=== PATIENT | male | born 1995 | race Caucasian/White ===

== ENCOUNTER 2022-07-15 17:18 | Emergency (ER) | payer MEDICAID, SELFPAY ==
[2022-07-15 17:36] VITALS: BP 129/66; PULSE 96; RESP 20; TEMP 36.7; O2SAT 98
--- NOTE | 2022-07-15 18:00 | DI.CT_ITS ---
Exam(s) CT LUMBAR SPINE WO EXAM: CT LUMBAR SPINE WO CLINICAL HISTORY: midline lumber spine tenderness, r/o fracture. TECHNIQUE: Imaging Protocol: Axial computed tomography images with coronal and sagittal reformatted images were created and reviewed. COMPARISON: No exams were available for comparison FINDINGS: Bones: No fractures or dislocations are seen. The alignment of the spine is normal including the thor acolumbar junction. There are mild degenerative changes in the lumbar spine. Soft tissues: The soft tissues of the visualized abdomen and chest are unremarkable. There are mild d iffuse disc bulges at L2-3 and L3-L4 causing mild central spinal canal stenosis. IMPRESSION: No acute fracture or subluxation in the lumbar spine. RADIATION DOSE DELIVERED: 581.69mGy.cm Total DLP 581.69mGy.cm Total DLP DATA REPOSITORY: All CT scans at this facility are submitted to the National Radiology Data Registry (NRDR) Dose Index Registry (DIR) with the [employer] (ACR). RADIATION OPTIMIZATION: All CT scans at this facility use at least one of these dose optimization te chniques: automated exposure control; mA and/or kV adjustment per patient size (includes targeted exa ms where dose is matched to clinical indication); or iterative reconstruction.
--- NOTE | 2022-07-15 18:08 | ED.GENADUL_ITS ---
Discharge Plan Disposition Patient Disposition: HOME Condition: Improving Discharge Details Clinical Impression: Lumbar contusion Primary Care Provider: Zuly Srivastava ED Provider: Bhargavi Collins Home Meds and New Rx's Prescriptions: New methocarbamol 500 mg tablet 500 mg PO Q6H PRN (Reason: muscle spasm) Qty: 14 0RF Continued clonazepam 0.5 mg tablet 0.5 mg PO BID Qty: 60 0RF Rx Instructions: Trial for KECIA Discharge Instructions Instructions: Contusion in Adults (ED) Additional Instructions: Your imaging today shows degenerative changes but no evidence of acute fracture. Drink plenty of fluids and get plenty of rest. Alternate tylenol and motrin as needed and directed for pain. Take the oxycodone for pain not relieved with Tylenol or Motrin. A prescription for the muscle relaxer methocarbamol has been sent electronically to your pharmacy. Return immediately to the emergency department if you develop any worsening or new concerning symptoms such as bowel or bladder incontinence, leg weakness or numbness, inability to ambulate, worsening pain or any other concerns. Discharge Data Discharge Date/Time-TO BE ENTERED AT DEPARTURE: 07/15/22 20:15 Discharge Physician: Bhargavi Collins Medical Decision Making 27-year-old male presents with lower back pain s/p mechanical fall down 8 feet off a shed directly onto his back on the hard grass below 2 hours prior to arri ganga. Denies head injury and has been able to ambulate. Patient ambulated into the emergency department. Vitals within normal limits. Lungs are clear bilaterally. Abdomen soft and nontender. He has midline lumbar spine and bilateral lumbar paraspinal tenderness. There is no evidence of trauma to back. Normal inspection and range of motion to extremities without evidence of deformity or pain. Will refer for CT imaging due to mechanism of fall to rule out fracture. We will give a dose of oxycodone and Toradol IM and reassess. Imaging reviewed and notes degenerative changes but no acute fracture. Patient is moving all extremities without focal deficits. His pain is improved with oxy codone and Toradol. Will give oxycodone bottle to go as he still appears uncomfortable. Discussed with patient that he should rest as much as possible, apply ice to the affected areas, alternate Tylenol and Motrin. Advised to follow-up with the primary care doctor for reevaluation and for referral for outpatient MRI if indicated. Advised to return here immediately if he develops sudden loss of bowel or bladder function, inability ambulate, worsening pain or any other concerns. Imaging Data Radiologic Study: Radiologist's impression: CT Lumbar Spine Without Contrast Exam date and time: 07/15/2022 6:23 PM Age: 27 years old Clinical indication: Low back pain TECHNIQUE: Imaging protocol: Computed tomography of the lumbar spine without contrast. COMPARISON: No relevant prior studies available. FINDINGS: Bones/joints: No acute fracture. There is a broad-based disc bulge noted at the L2-L3, L3-L4 and L4-L5 levels causing mild spinal canal stenosis at L2-L3 and L3-L4 and mild right neural foraminal narrowing at L4-L5. Incidentally noted is sacralization of the L5 vertebral body with fusion of the L5 transverse processes with the bilateral sacral ala. Soft tissues: Unremarkable. IMPRESSION: No acute fracture. Multilevel degenerative changes as described. HPI General Mode of arrival: ambulatory . Date/Time Provider Initiated Documentation: 07/15/22 17:53 . Limitations to Documentation: no limitations . Information obtained by: patient . HPI Narrative: Patient is a 27-year-old male presents with midline lower back pain after fall 8 feet off a shed onto grass 2 hours ago. Patient states he slipped off the shed falling directly onto his back onto the grass. He denies head injury, headache, LOC, chest pain, shortness of breath, abdominal pain, neck pain, extremity injury or pain. He has not taken any medication for pain. He states he was able to ambulate after the fall but is having pain in his lower back with any movement. Related Data Home Medications Medication Instructions Recorded Confirmed clonazepam 0.5 mg tablet 0.5 mg PO BID #60 tabs 07/09/22 07/15/22 methocarbamol 500 mg tablet 500 mg PO Q6H PRN muscle spasm #14 07/15/22 tabs Previous Rx's Medication Instructions Recorded clonazepam 0.5 mg tablet 0.5 mg PO BID #60 tabs 07/09/22 methocarbamol 500 mg tablet 500 mg PO Q6H PRN muscle spasm #14 07/15/22 tabs Allergies Allergy/AdvReac Type Severity Reaction Status Date / Time fluoxetine [From Prozac] Allergy Intermediate rash Unverified 07/15/22 17:40 General Stated Complaint: Trauma BRITT: 3 Review of Systems All systems reviewed & are unremarkable except as noted in HPI and below Constitutional Constitutional: Reports as per HPI, Denies chills, Denies excessive sweating, Denies fatigue and Denies fever(s) Eyes Eyes: Denies blurry vision ENT Ears, Nose, Mouth, and Throat: Denies dizziness, Denies sore throat and Denies throat swelling Cardiovascular Cardiovascular: Denies chest pain and Denies dyspnea Respiratory Respiratory: Denies cough and Denies dyspnea Gastrointestinal Gastrointestinal: Denies abdominal pain, Denies diarrhea and Denies vomiting Genitourinary Genitourinary: Denies hematuria and Denies dysuria Musculoskeletal Musculoskeletal: Reports back pain and Denies numbness Integumentary/Breasts Skin/Breast: Denies lesions and Denies rash Neurologic Neurologic: Denies behavioral changes, Denies confusion, Denies dizziness, Denies localized weakness and Denies numbness Psychiatric Psychiatric: Denies behavioral changes, Denies confusion and Denies depression Endocrine Endocrine: Denies excessive sweating and Denies fatigue Hematologic/Lymphatic Hematologic/Lymphatic: Denies easy bruising and Denies lymphadenopathy Allergic/Immunologic Allergic/Immunologic: Denies throat swelling PFSH All Active Problems Lumbar contusion (Acute) KECIA (generalized anxiety disorder) (Acute) Acute on chronic, with onset @ 19-20's .. remembering as sudden (gregarious w/o memory of anxiety while in HS) .. Hx working, partying with tough crowd, and substance abuse (no injectables).. Screening for cholesterol level (Acute) Parenting stress (Acute) , 7-mo dtr.. [place]. Caregiver burden (Acute) Moved here to help with extended family; [id number]-eg-rea recovered, but decided to stay. Medical History (Updated 07/15/22 @ 19:59 by Bhargavi Collins DO) Anxiety and depression Surgical History (Updated 07/15/22 @ 18:04 by Bhargavi Collins DO) History of hand surgery Right 5th finger surgery Family History (Updated 07/02/22 @ 17:31 by Monique Clayton RN) Paternal Grandfather Alcohol use disorder Sister Asthma Depression Anxiety Mother Breast cancer Depression Anxiety Paternal Grandmother Diabetes Hypertension Anxiety Father Anxiety Social History (Updated 06/17/22 @ 14:38 by Bernice Boyer LPN) Smoking/Tobacco Use Status: Current every day Tobacco Type: e-cigarettes Tobacco: How many years used: 10 Smokeless tobacco user: other (Vape) Smoking risk assessment performed?: Yes Alcohol Intake: current Alcohol Intake frequency: a few times a month Drug use: Occasionally Substance use type: marijuana Adopted: No Caregiver/Support person: No Foster care: No Household members: spouse and children Housing: apartment Number of Children: 1 Communication Needs: None Education Level: high school Do you need help understanding health information?: Never current occupation: [employer] Pets and animals: Yes Pets and animals: dog(s) Sexually active: Yes Do you think of yourself as: straight/heterosexual Current gender identity: male What is your relationship status?: How often do you talk on the phone with friends or family?: once per week How often do you get together with friends or relatives?: once per week Do you belong to any clubs or organized social groups?: no Panel score (0-1 are the most socially isolated patients): 1 Seatbelt use: always Helmet use: No Drive intox or ride w/intox coach driver: No Do you feel safe at home: Yes Do you feel safe in your relationship?: Yes Exam Const General: cooperative and healthy appearing Orientation: alert, awake and oriented x3 HENMT Head: normal to inspection Ears: hearing grossly normal bilaterally and external ears normal General nose exam: external nose normal Face and sinus: normal facial exam Mouth: oral mucosae normal Eyes General: appearance normal, both eyes and all related structures Eyelids: eyelids normal EOM: EOM intact bilaterally Neck Neck: normal visual inspection, full ROM, no meningeal signs, trachea midline, supple, no anterior neck swelling and No submandibular swelling Lymphatic: no lymphadenopathy noted Chest Chest: normal inspection of the chest, normal palpation of entire chest wall and no tenderness Resp Effort & Inspection: normal respiratory effort and able to speak in complete sentences Auscultation: clear to auscultation bilaterally Cardio Rate: regular rate Rhythm: regular rhythm GI Inspection: normal to inspection and no abdominal wall ecchymosis Palpation: soft, not firm, no guarding, no hepatosplenomegaly, no masses and nontender Auscultation: hypoactive bowel sounds Back/Spine/Pelvis Cervical Spine: No cervical spinal tenderness Thoracic/Lumbar Spine: No thoracic spinal tenderness and lumbar spinal tenderness Pelvis: no pain with anterior-posterior compression Back/spine/pelvis image: 1. Tenderness to palpation midline lumbar spine and extending to bilateral lumbar paraspinal region. There is no evidence of edema, erythema, ecchymosis, rash, lesions or step-off. Skin General skin exam: no rashes or lesions noted Neuro General: patient alert, patient awake, patient oriented x3 and moves all extremities Cognition: normal cognition Speech: speech normal Motor: muscle tone normal throughout and strength 5/5 throughout Sensory Exam: no sensory deficits noted Extrem General: normal to inspection, full ROM and capillary refill normal Other: Full ROM b/l upper and lower extremities without pain or evidence of trauma. B/L PT/DP pulses intact. Psych Appearance: grossly normal Mental Status: mental status grossly normal Speech and Movement: speech and movement normal Affect: normal affect Thought Process: normal Course Vital Signs Vital signs: Vital Signs Temperature 98.1 F 07/15/22 17:36 Pulse 96 H 07/15/22 17:36 Respiratory Rate 20 07/15/22 17:36 Blood Pressure 129/66 07/15/22 17:36 Pulse Oximetry 98 07/15/22 17:36 Temperature 98.1 F 07/15/22 17:36 Pulse 96 H 07/15/22 17:36 Respiratory Rate 20 07/15/22 17:36 Respiratory Effort 07/15/22 17:38 Blood Pressure 129/66 07/15/22 17:36 Blood Pressure Position Sitting 07/15/22 17:36 Pulse Oximetry 98 07/15/22 17:36 Oxygen Delivery Method Room Air 07/15/22 17:36 Oxygen Flow Rate 0 07/15/22 17:36 Pain Level 9 07/15/22 17:36
[2022-07-15] MEDS: Ketorolac 60 MG/2 ML VIAL IM (18:37)
[2022-07-15] MEDS: oxyCODONE 5 MG TAB PO (18:37)
--- NOTE | 2022-07-15 19:24 | DI.VRAD_ITS ---
PROCEDURE INFORMATION: Exam: CT Lumbar Spine Without Contrast Exam date and time: 07/15/2022 6:23 PM Age: 27 years old Clinical indication: Low back pain TECHNIQUE: Imaging protocol: Computed tomography of the lumbar spine without contrast. COMPARISON: No relevant prior studies available. FINDINGS: Bones/joints: No acute fracture. There is a broad-based disc bulge noted at the L2-L3, L3-L4 and L4-L5 levels causing mild spinal canal stenosis at L2-L3 and L3-L4 and mild right neural foraminal narrowing at L4-L5. Incidentally noted is sacralization of the L5 vertebral body with fusion of the L5 transverse processes with the bilateral sacral ala. Soft tissues: Unremarkable. IMPRESSION: No acute fracture. Multilevel degenerative changes as described. Dictated and Authenticated by: Dianna Carrera MD. Ordering:MAURICIO Burk MD
[2022-07-15 20:15] VITALS: BP 121/70; PULSE 96; RESP 16; TEMP 36.7; O2SAT 97
== END 2022-07-15 20:15 | disposition home or self-care (01) ==
PROVIDERS: Emergency Provider Physician Assistant; PCP Student in an Organized Health Care Education/Training Program
DX: S30.0XXA Contusion of lower back and pelvis, initial encounter (principal); F17.290 Nicotine dependence, other tobacco product, uncomplicated; W17.89XA Other fall from one level to another, initial encounter
CPT/HCPCS: 96372; 99284; 72131; J1885

== ENCOUNTER 2022-07-22 03:56 | Outpatient (CLI) | payer MEDICAID, SELFPAY ==
[2022-07-22 08:20] LABS: ALT 47 U/L (16-63); AST 26 U/L (15-37); Albumin 4.1 g/dL (3.4-5.0); Alkaline Phosphatase 72 U/L (46-116); Anion Gap 8.7 mmol/L (3-11); BUN 10 mg/dL (7-18); Bilirubin, Total 0.7 mg/dL (0.2-1.0); CO2 29.3 mmol/L (21.0-32.0); CREATININE 1.2 mg/dL (0.70-1.30); Calculated LDL 144 mg/dL (<100); Chloride 106 mmol/L (98-107); Cholesterol 211 mg/dL (<200); Estimated GFR 84.48 (mL/min/1.73m2); Glucose 97 mg/dL (74-106); HDL Cholesterol 43 mg/dL (40-60); Potassium 4.3 mmol/L (3.5-5.1); Sodium 144 mmol/L (136-145); Total Protein 7.3 g/dL (6.4-8.2); Triglyceride 120 mg/dL (<150)
== END 2022-07-22 03:57 | disposition home or self-care (01) ==
LOC: LBO 03:56
PROVIDERS: PCP Student in an Organized Health Care Education/Training Program; Referring Provider Student in an Organized Health Care Education/Training Program; Visit Provider Student in an Organized Health Care Education/Training Program
DX: E87.8 Other disorders of electrolyte and fluid balance, not elsewhere classified (principal); Z13.220 Encounter for screening for lipoid disorders; F41.1 Generalized anxiety disorder
CPT/HCPCS: 36415; 80053; 80061

== ENCOUNTER → 2022-08-11 01:42 | Outpatient (CLI) | payer MEDICAID, SELFPAY ==
--- NOTE | 2022-08-11 06:45 | DI.MRI_ITS ---
Exam(s) MR LUMBAR SPINE WO EXAM: MR LUMBAR SPINE WO CLINICAL HISTORY: bulging lumbar disc,crush injury,spinal stenosis,m48.061,m51.36,t14.8xxa. TECHNIQUE: Multiplanar multisequence MRI of the Lumbar spine was performed. COMPARISON: CT CT LUMBAR SPINE WO from 07/15/2022 FINDINGS: Bones: There is sacralization of the L5 vertebral body. The vertebral body heights are well maintain ed. Alignment is satisfactory. The marrow signal characteristics are unremarkable. Cord: The conus tip ends at the T12 level. It is of normal size and signal intensity. T12-L1: No disc herniations or bulges are present. No central spinal canal or neural foraminal stenos is. L1-2: No disc herniations or bulges are present. No central spinal canal or neural foraminal stenosis . L2-3: Partial disc desiccation. Minimal disc bulging. No disc herniation present. No central spinal canal or neural foraminal stenosis. L3-4: Moderate-sized central and slightly right-sided disc protrusion impinging on the anterior are t hecal sac. Mild central canal stenosis. No neural foraminal stenosis. L4-5: Small focal central disc herniation with extrusion of a small amount of disc material inferiorl y. no central spinal canal or neural foraminal stenosis. L5-S1: Rudimentary disc. No disc herniations or bulges are present. No central spinal canal or neura l foraminal stenosis. The visualized SI joints and sacrum are well maintained. Soft tissues: The paraspinal soft tissues are unremarkable. IMPRESSION: Moderate size central and right-sided disc protrusion at L3-4 causing mild central canal stenosis. Small focal central disc herniation with inferior extrusion of disc material at L4-5. DATA REPOSITORY:
== END ==
PROVIDERS: PCP Student in an Organized Health Care Education/Training Program; Visit Provider Student in an Organized Health Care Education/Training Program
DX: M51.26 Other intervertebral disc displacement, lumbar region; M51.36 Other intervertebral disc degeneration, lumbar region; M48.061 Spinal stenosis, lumbar region without neurogenic claudication
CPT/HCPCS: 72148

== ENCOUNTER 2022-09-07 14:14 | Outpatient (REF) | payer MEDICAID, SELFPAY ==
[2022-09-07 20:04] LABS: HCT 43.2 % (40.0-50.0); HGB 14.6 g/dL (13.5-17.5); MCH 28.3 pg (27.0-33.0); MCHC 33.8 % (32.0-36.0); MCV 84 fL (80-95); Platelet Count 302 10^3/uL (130-400); RBC 5.15 10^6/uL (4.36-5.78); RDW-SD 39.8 fL; WBC 4.58 10^3/uL (4.4-10.8)
[2022-09-07 20:07] LABS: ESR 4 mm/hr (0-15)
[2022-09-07 20:15] LABS: C-Reactive Protein 0.07 mg/dL (0.0-0.3)
[2022-09-08 17:23] LABS: Rheumatoid Factor <8.6 IU/mL (<12.0)
[2022-09-09 09:59] LABS: Lyme Ab w Rflx to Lyme Confirm Negative (Negative)
[2022-09-09 13:37] LABS: ANA Interpretation Negative (Negative)
[2022-09-10 18:20] LABS: Anaplasma phagocytophilum Negative (Negative); B. miyamotoi PCR Negative (Negative); Babesia divergens/MO-1 Negative (Negative); Babesia duncani Negative (Negative); Babesia microti Negative (Negative); Ehrlichia chaffeensis Negative (Negative); Ehrlichia ewingii/canis Negative (Negative); Ehrlichia muris eauclairensis Negative (Negative)
== END 2022-09-07 14:15 | disposition home or self-care (01) ==
LOC: LBN 14:14
PROVIDERS: Nurse Practitioner; PCP Student in an Organized Health Care Education/Training Program; Visit Provider Student in an Organized Health Care Education/Training Program
DX: M25.641 Stiffness of right hand, not elsewhere classified (principal); M25.642 Stiffness of left hand, not elsewhere classified; R20.0 Anesthesia of skin; R20.2 Paresthesia of skin; W57.XXXA Bitten or stung by nonvenomous insect and other nonvenomous arthropods, initial encounter
CPT/HCPCS: 85027; 85652; 87798; 86038; 86140; 86431; 86618

== ENCOUNTER 2022-09-29 11:10 | Emergency (ER) | payer MEDICAID, SELFPAY ==
[2022-09-29 11:12] VITALS: BP 105/66; PULSE 120; RESP 18; TEMP 37.2; O2SAT 97
--- OUTSIDE RECORDS SUMMARY | 2022-09-29 11:18 | XMS_ITS | Clinical Summary ---
:1995 Demographics Home Phone Preferred Language Unknown Marital Status Unknown Episcopal Affiliation Unknown Race Unknown Ethnic Group Unknown Author Organization [facility] Address [address] [place] [address] Care Team Providers Name Role Phone Unavailable Primary Care Provider Unavailable Encounters Date Type Specialty Care Team Description 09/08/2022 Lab Requisition Clinical Laboratory Outr Resulting Lab , Provider from Last 3 Months Social History Tobacco Use Types Packs/Day Years Used Date Smoking Tobacco: Never Assessed Sex Assigned at Date Recorded Not on file Plan of Treatment Health Maintenance Due Date Last Done Comments Hepatitis C Screen 1995 COVID-19 Vaccine (#1) 1995 Procedures Procedure Name Priority Date/Time Associated Comments Diagnosis LYME AB Routine 09/07/2022 18:24 Results for this EDT procedure are i n the results section. RHEUMATOID FACTOR Routine 09/07/2022 18:24 Result s for this EDT procedure are i n the results section. ANTI NUCLEAR AB Routine 09/07/2022 18:24 Results for this (ASHLEY), IFA EDT procedure are i n the results section. from Last 3 Months Results LYME AB (09/07/2022 18:24 EDT) P athologist Signature Lyme Ab Negative Negative 09/09/2022 [facility] MEDICAL 9:53 EDT [facility]ENTER [facility] Specimen Anatomical Collection Method Collection Time Receive d Time (Source) Location / / Volume Laterality Blood VENOUS BLOOD / 09/07/2022 18:24 Unknown EDT 16:44 EDT Provider Outr Resulting Lab IMMUNOLOGY AND SEROLOGY OR DERABLES Performing Organization Address City/State/ZIP Code Phon e Number [facility] [address] [place] [address] SERVICES RHEUMATOID FACTOR (09/07/2022 18:24 EDT) P athologist Signature Rheumatoid <8.6 <12.0 09/08/2022 [facility] MEDICAL Factor IU/mL 17:19 EDT CENTER LAB[facility]ATORY SERVICES Specimen Anatomical Collection Method Collection Time Receive d Time (Source) Location / / Volume Laterality Blood VENOUS BLOOD / 09/07/2022 18:24 2 Unknown EDT 16:44 EDT Provider Outr Resulting Lab CHEMISTRY & BLOOD GAS HARISH FARLEY Performing Organization Address City/[facility]/ZIP Code Phon e Number [facility] [address] [place] [address] SERVICES ANTI NUCLEAR AB (ASHLEY), IFA (09/07/2022 18:24 EDT) [facility] Method Time Signature ASHLEY Interpretation Negative Negative 09/09/2022 [facility] MEDICA L 13:32 EDT CENTER LAB[facility]ORY SERVICES Comment: No titer performed, ASHLEY Screen is negative. Specimen Anatomical Collection Method Collection Time Receive d Time (Source) Location / / Volume Laterality Blood VENOUS BLOOD / 09/07/2022 18:24 2 Unknown EDT 16:44 EDT Narrative [facility] SERVICES - 09/09/2022 13:32 EDT Results were obtained with the [employer] NOV A Lite HEp-2 ASHLEY Kit by indirect immunofluorescence. Provider Outr Resulting Lab IMMUNOLOGY AND SEROLOGY OR DERABLES Performing Organization Address City/State/ZIP Code Phon e Number [facility] [address] [place] [address] SERVICES from Last 3 Months
--- OUTSIDE RECORDS SUMMARY | 2022-09-29 11:18 | XMS_ITS | Encounter Summary ---
:1995 Demographics Home Phone Preferred Language Unknown Marital Status Unknown Episcopalian Affiliation Unknown Race Unknown Ethnic Group Unknown Author Organization [facility] Address [address] [place] [address] Care Team Providers Name Role Phone Unavailable Primary Care Provider Unavailable Encounter Details Date Type Department Care Team Description 09/08/2022 Lab Requisition [facility] Outr Resulting Lab, Pathology & Laboratory Provider [facility] [address] [place] [address] Social History Tobacco Use Types Packs/Day Years Used Date Smoking Tobacco: Never Assessed Sex Assigned at Date Recorded Not on file documented as of this encounter Plan of Treatment Not on filedocumented as of this encounter Procedures Procedure Name Priority Date/Time Associated Comments Diagnosis LYME AB Routine 09/07/2022 18:24 Results for this EDT procedure are i n the results section. RHEUMATOID FACTOR Routine 09/07/2022 18:24 Result s for this EDT procedure are i n the results section. ANTI NUCLEAR AB Routine 09/07/2022 18:24 Results for this (ASHLEY), IFA EDT procedure are i n the results section. documented in this encounter Results LYME AB (09/07/2022 18:24 EDT) P athologist Signature Lyme Ab Negative Negative 09/09/2022 [facility] MEDICAL 9:53 EDT CENTER LABORATORY SERVICES Specimen Anatomical Collection Method Collection Time Receive d Time (Source) Location / / Volume Laterality Blood VENOUS BLOOD / 09/07/2022 18:24 2 Unknown EDT 16:44 EDT Provider Outr Resulting Lab IMMUNOLOGY AND SEROLOGY OR DERABLES Performing Organization Address City/State/ZIP Code Phon e Number [facility] [address] [place] [address] SERVICES RHEUMATOID FACTOR (09/07/2022 18:24 EDT) P athologist Signature Rheumatoid <8.6 <12.0 09/08/2022 [facility] MEDICAL Factor IU/mL 17:19 EDT CENTER LABORATORY SERVICES Specimen Anatomical Collection Method Collection Time Receive d Time (Source) Location / / Volume Laterality Blood VENOUS BLOOD / 09/07/2022 18:24 2 Unknown EDT 16:44 EDT Provider Outr Resulting Lab CHEMISTRY & BLOOD GAS RAULE MIGUELITO Performing Organization Address City/[facility]/ZIP Code Phon e Number [facility] [address] [place] [address] SERVICES ANTI NUCLEAR AB (ASHLEY), IFA (09/07/2022 18:24 EDT) [facility] Method Time Signature ASHLEY Interpretation Negative Negative 09/09/2022 [facility] MEDICA L 13:32 EDT CENTER LABORATORY SERVICES Comment: No titer performed, ASHLEY Screen is negative. Specimen Anatomical Collection Method Collection Time Receive d Time (Source) Location / / Volume Laterality Blood VENOUS BLOOD / 09/07/2022 18:24 2 Unknown EDT 16:44 EDT Narrative [facility] - 09/09/2022 13:32 EDT Results were obtained with the [employer]OVA NOV A Lite HEp-2 ASHLEY Kit by indirect immunofluorescence. Provider Outr Resulting Lab IMMUNOLOGY AND SEROLOGY OR DERABLES Performing Organization Address City/State/ZIP Code Phon e Number [facility] [address] [place] [address] SERVICES documented in this encounter Visit Diagnoses Not on filedocumented in this encounter
--- NOTE | 2022-09-29 11:46 | ED.GENADUL_ITS ---
Discharge Plan Disposition Patient Disposition: Home Condition: Stable Discharge Details Clinical Impression: Sciatica of right side associated with disorder of lumbar spine Primary Care Provider: Zuly Srivastava ED Provider: Monica May Home Meds and New Rx's Prescriptions: New tramadol 100 mg tablet 100 mg PO TID PRN (Reason: pain) Qty: 21 0RF Rx Instructions: take one tablet up to three times daily as needed for moderate pain prednisone 20 mg tablet 60 mg PO DAILY 9 Days Qty: 17 0RF Rx Instructions: Take 3 tabs daily x 3 days, Take 2 tabs daily x 3 days, Take one tab daily x 3 days. Continued ibuprofen 600 mg tablet 600 mg PO TID Qty: 90 1RF lidocaine [Blue-Emu Lidocaine Patch] 4 % adhesive patch,medicated 1 patch topical BID PRN (Reason: pain) Qty: 10 1RF Rx Instructions: apply to lower back for pain relief diclofenac sodium [Voltaren Arthritis Pain] 1 % gel 4 g topical QID Qty: 100 1RF Rx Instructions: apply to lower back for spinal pain AleveX Topical 1 ea topical DAILY Qty: 1 0RF Rx Instructions: OK to use, OTC famotidine [Heartburn Relief (famotidine)] 20 mg tablet 20 mg PO BID Qty: 60 1RF Rx Instructions: Trial H2 Montse for esophagitis cyclobenzaprine 10 mg tablet 10 mg PO HS Qty: 20 1RF clonazepam 0.5 mg tablet See Rx Instructions PO .COMPLEX MDD 1.5 mg Qty: 84 2RF Rx Instructions: 1mg in AM, 0.5mg PM orally; Discharge Instructions Instructions: Sciatica (ED) Additional Instructions: Prescription for tramadol and prednisone were sent to the pharmacy on file. Please continue to use lidocaine patches Tylenol and ibuprofen as needed. Use the tramadol for moderate to severe pain. Follow up with primary care provider in 3-5 days. Return to ED sooner if any worsening weakness numbness tingling in your leg, loss of bowel or bladder control, any numbness in your groin or rectal area or concerns. Increase oral fluids. Alternate with ice and heat. Referrals: Zuly Srivastava DO [Primary Care Provider] - 3 days Discharge Data Discharge Date/Time-TO BE ENTERED AT DEPARTURE: 09/29/22 12:37 Medical Decision Making 27-year-old male presents to the ER after being instructed to be seen by PCP for chief complaint of low back pain. Patient fell on July 15 and had an MRI on September 11 which showed bulging disc at L3-L4. Patient reports that he has been out of tramadol for approximately a week and this morning he was unable to get out of bed with much difficulty. At this time no red flags noted for cauda equina, denies any loss of bowel or bladder control, he does have some radicular pain in his right thigh. Does have a recent MRI with no recent injury since I do feel like reimaging is not necessary at this time. 100 mg of tramadol and prednisone ordered at this time. We will do a prednisone trial and refill the patient's tramadol prescription. This text was generated using [email or web address]comation system, please disregard any oddities of phrase or misspellings. Medical Records Medical records reviewed: Yes I reviewed the patient's medical records. Sign Out No HPI General Mode of arrival: ambulatory . Date/Time Provider Initiated Documentation: 09/29/22 11:14 . Limitations to Documentation: no limitations . Information obtained by: patient, RN/MD and old records reviewed . HPI Narra tive: 27-year-old male presents to the ER after being instructed to be seen by PCP for chief complaint of low back pain. Patient fell on July 15 and had an MRI on September 11 which showed bulging disc at L3-L4. Patient reports that he has been out of tramadol for approximately a week and this morning he was unable to get out of bed with much difficulty. He missed his physical therapy appointment today due to the pain. He reports some radiation of pain down into his right buttock to his right thigh, he denies any saddle anesthesia denies any loss of bowel or bladder control. No other complaints. He does have a lidocaine patch in place, he has been taking 600 mg ibuprofen and clonazepam. Related Data Home Medications Medication Instructions Recorded Confirmed AleveX Topical 1 ea topical DAILY #1 ea 07/22/22 08/26/22 diclofenac sodium 1 % topical gel 4 g topical QID #100 grams 07/22/22 09/29/22 (Voltaren Arthritis Pain) ibuprofen 600 mg tablet 600 mg PO TID #90 tabs 07/22/22 09/29/22 lidocaine 4 % topical patch 1 patch topical BID PRN pain #10 ea 07/22/22 09/29/22 (Blue-Emu Lidocaine Patch) cyclobenzaprine 10 mg tablet 10 mg PO HS muscle spasm #20 tabs 08/06/22 09/29/22 famotidine 20 mg tablet (Heartburn 20 mg PO BID #60 tabs 08/06/22 09/29/22 Relief (famotidine)) clonazepam 0.5 mg tablet See Rx Instructions PO .COMPLEX 08/07/22 09/29/22 #84 tabs prednisone 20 mg tablet 60 mg PO DAILY Lumbago 9 days #17 09/29/22 tabs tramadol 100 mg tablet 100 mg PO TID PRN pain #21 tabs 09/29/22 Previous Rx's Medication Instructions Recorded AleveX Topical 1 ea topical DAILY #1 ea 07/22/22 diclofenac sodium 1 % topical gel 4 g topical QID #100 grams 07/22/22 (Voltaren Arthritis Pain) ibuprofen 600 mg tablet 600 mg PO TID #90 tabs 07/22/22 lidocaine 4 % topical patch 1 patch topical BID PRN pain #10 ea 07/22/22 (Blue-Emu Lidocaine Patch) cyclobenzaprine 10 mg tablet 10 mg PO HS muscle spasm #20 tabs 08/06/22 famotidine 20 mg tablet (Heartburn 20 mg PO BID #60 tabs 08/06/22 Relief (famotidine)) clonazepam 0.5 mg tablet See Rx Instructions PO .COMPLEX 08/07/22 #84 tabs prednisone 20 mg tablet 60 mg PO DAILY Lumbago 9 days #17 09/29/22 tabs tramadol 100 mg tablet 100 mg PO TID PRN pain #21 tabs 09/29/22 Allergies Allergy/AdvReac Type Severity Reaction Status Date / Time fluoxetine [From Prozac] Allergy Intermediate rash Verified 09/29/22 11:17 General Stated Complaint: Nk/Back Pain BRITT: 3 Review of Systems All systems reviewed & are unremarkable except as noted in HPI and below Genitourinary Genitourinary: Reports urinary hesitancy and Denies urinary incontinence Musculoskeletal Musculoskeletal: Reports as per HPI, Reports abnormal gait, Reports back pain, Reports radiating pain into limb (Right thigh) and Reports stiffness Neurologic Neurologic: Reports as per HPI, Reports abnormal gait and Reports radicular pain PFSH All Active Problems Sciatica of right side associated with disorder of lumbar spine (Acute) Reflux esophagitis (Acute) Crush injury (Acute) Fall from roof onto back, with new spinal stenosis/bulging disc per CT .. concern for vertebral compression, nerve injury Bulging lumbar disc (Acute) Localized radiculopathy Spinal stenosis of lumbar region at multiple levels (Acute) KECIA (generalized anxiety disorder) (Acute) Acute on chronic, with onset @ 19-20's .. remembering as sudden (gregarious w/o memory of anxiety while in HS) .. Hx working, partying with tough crowd, and substance abuse (no injectables).. Screening for cholesterol level (Acute) Parenting stress (Acute) , 7-mo dtr.. moved here from [place]. [facility] about /dtr. Caregiver burden (Acute) Moved here to help with extended family; [id number] recovered, but decided to stay. Medical History Anxiety and depression Surgical History History of hand surgery Right 5th finger surgery Family History Paternal Grandfather Alcohol use disorder Sister Asthma Depression Anxiety Mother Breast cancer Depression Anxiety Paternal Grandmother Diabetes Hypertension Anxiety Father Anxiety Social History Smoking/Tobacco Use Status: Current every day Tobacco Type: e-cigarettes Tobacco: How many years used: 10 Smokeless tobacco user: other (Vape) Smoking risk assessment performed?: Yes Alcohol Intake: current Alcohol Intake frequency: a few times a month Drug use: Occasionally Substance use type: marijuana Adopted: No Caregiver/Support person: No Foster care: No Household members: spouse and children Housing: apartment Number of Children: 1 Communication Needs: None Education Level: high school Do you need help understanding health information?: Never current occupation: [employer] Pets and animals: Yes Pets and animals: dog(s) Sexually active: Yes Do you think of yourself as: straight/heterosexual Current gender identity: male What is your relationship status?: How often do you talk on the phone with friends or family?: once per week How often do you get together with friends or relatives?: once per week Do you belong to any clubs or organized social groups?: no Panel score (0-1 are the most socially isolated patients): 1 Seatbelt use: always Helmet use: No Drive intox or ride w/intox bulk driver: No Do you feel safe at home: Yes Do you feel safe in your relationship?: Yes Exam Narrative Exam Narrative: Constitutional: Alert and oriented x3. Appears stated age. Normal body habitus. Head: Normocephalic, no trauma. Eyes: Pupils PERRL, Red reflex noted, EOM's intact. Eyelids symmetrical without lesions, discharge, or swelling. ENT: Bilateral TM's WNL, External ear normal to inspection, no mastoid TTP, swelling, or erythema, Nasal turbinates WNL, no nasal discharge. Normal dentition, Posterior pharynx WNL, no exudate. Chest: RRR, Normal S1, S2, distal pulses intact. Resp: Lungs clear to auscultation bilaterally, no wheezes, rales, or rhonchi. Abdomen: Soft, non-distended, Normoactive bowel sounds all 4 quads. Musculoskeletal: Normal gait, 5/5 strength to all four extremities. Skin: No suspicious rashes or lesions. Capillary refill less than 2 sec. Neurologic: Cranial nerves II-XII intact. Alert and oriented x 3. Motor: No deficits noted. Sensory: Intact bilaterally all 4 extremities. Reflexes: DTR's intact bilaterally.. Hematologic/Lymphatic: No ecchymosis, no lymphadenopathy. Course Vital Signs Vital signs: Vital Signs Temperature 37.2 C 09/29/22 11:12 Pulse 120 H 09/29/22 11:12 Respiratory Rate 18 09/29/22 11:12 Blood Pressure 105/66 09/29/22 11:12 Pulse Oximetry 97 09/29/22 11:12 Temperature 37.2 C 09/29/22 11:12 Temperature Source Temporal Artery Scan 09/29/22 11:12 Pulse 120 H 09/29/22 11:12 Respiratory Rate 18 09/29/22 11:12 Respiratory Effort Non-Labored 09/29/22 11:15 Blood Pressure 105/66 09/29/22 11:12 Blood Pressure Position Sitting 09/29/22 11:12 Pulse Oximetry 97 09/29/22 11:12 Oxygen Delivery Method Room Air 09/29/22 11:12 Oxygen Flow Rate 0 09/29/22 11:12 Pain Level 10 09/29/22 11:19 PAWSS Have you Been Recently Intoxicated or Drunk Within the Last 30 days?: No Have you Ever Experienced Previous Episodes of Alcohol Withdrawal?: No Have you ever Experienced Withdrawal Seizures?: No Have you ever Experienced Delirium Tremens(DT)s?: No Have you ever undergone Alcohol Rehabilitation Treatment (i.e, inpt ot outpatient treatment programs)?: No Have you ever Experienced Blackouts?: No Have you ever Combined Alcohol with other Downers within the last 90 days?: No Have you ever Combined Alcohol with any other Substance of Abuse during the last 90 days?: No Result: 0
[2022-09-29] MEDS: traMADol 50 MG TAB 100 MG PO (11:50)
[2022-09-29] MEDS: predniSONE 20 MG TAB PO (11:50)
== END 2022-09-29 12:37 | disposition home or self-care (01) ==
PROVIDERS: Emergency Provider Registered Nurse Emergency; PCP Student in an Organized Health Care Education/Training Program
DX: M51.17 Intervertebral disc disorders with radiculopathy, lumbosacral region (principal); R20.0 Anesthesia of skin
CPT/HCPCS: 99283; J7512

== ENCOUNTER 2024-07-27 00:21 | Outpatient (CLI) | payer MEDICAID, SELFPAY ==
--- NOTE | 2024-07-27 07:15 | DI.RAD_ITS ---
Exam(s) XR LUMBAR SPINE COMP W FLEX/EX EXAM: XR LUMBAR SPINE COMP W FLEX/EX CLINICAL HISTORY: evaluate disc space, vert pathology, curvature,BACK PAIN,SPINAL STENOSIS,. TECHNIQUE: 2D digital imaging was performed. Five views. COMPARISON: MR MR LUMBAR SPINE WO from 08/11/2022 FINDINGS: BONES: No fracture or destructive lesion. Vertebral body heights are maintained. No facet hypertro phy identified . Minimal endplate osteophytes. There is partial sacralization of the L5 vertebral body. DISKS: Intervertebral disc spaces are maintained. ALIGNMENT: Lumbar spinal alignment is within normal limits. SOFT TISSUE: Normal. IMPRESSION: Unremarkable radiographs of the lumbar spine. DATA REPOSITORY: RADIATION DOSE DELIVERED:
--- NOTE | 2024-07-27 07:15 | DI.RAD_ITS ---
Exam(s) XR THORACIC SPINE COMPLETE EXAM: XR THORACIC SPINE COMPLETE CLINICAL HISTORY: evaluate disc space, vert pathology, curvature,BACK PAIN,FELL FROM LADDER,. TECHNIQUE: 2D digital imaging was performed. Three views. COMPARISON: No exams were available for comparison FINDINGS: BONES: There is no fracture or destructive lesion. The vertebral bodies and posterior elements are un remarkable. ALIGNMENT: Within normal limits. No visible scoliosis. DISKS: Interverebral disc spaces are maintained. Small endplate osteophytes in the mid through lower thoracic spine. SOFT TISSUE: Visualized lungs are clear. IMPRESSION: Mild degenerative disc changes, somewhat advanced for the patient's age. DATA REPOSITORY: RADIATION DOSE DELIVERED:
== END 2024-07-27 00:41 ==
LOC: DI 00:21
PROVIDERS: PCP Student in an Organized Health Care Education/Training Program; Visit Provider Student in an Organized Health Care Education/Training Program
DX: M48.061 Spinal stenosis, lumbar region without neurogenic claudication; W11.XXXA Fall on and from ladder, initial encounter; M54.59 Other low back pain; X58.XXXA Exposure to other specified factors, initial encounter
CPT/HCPCS: 72114; 72072